=== PATIENT | male | born 1950 | race African-American/Black ===

== ENCOUNTER 2019-11-14 16:46 | Inpatient (IN) ==
--- NOTE | 2019-11-14 17:06 | DR.DIZZY ---
HPI Time seen Time Seen by Provider: 11/14/19 16:59 PCP Primary Care Physician: Apollo HPI Comment HPI Comment: Recurrent weak and dizziness over the past few days since ER visit 11/08 for the same; so bad, that family members have to hold him steady so that he does not fall; he still has intermittent episodes of brbpr and has an appt with pcp on Saturday for fup; colonoscopy last year was benign; he stopped Naprosyn last week as instructed and denies abd pain, n/v/d/f/c as well as hematemesis; he is eating and drinking appropriately. Nurses Notes Reviewed Nurses Notes Review: Yes Context Stroke Symptoms: None PMH PMH Past Medical History: Asthma Past Surgical History: No Social History Do you use any recreational Drugs:: No infectious screening Isolation: Standard ROS Review of Systems Constitutional: See HPI, Malaise, Weakness and Fatigue Eyes: No Symptoms Reported ENTM: No Symptoms Reported Respiratoy: No Symptoms Reported Cardiovascular: No Symptoms Reported Gastrointestinal/Abdominal: See HPI Genitourinary: No Symptoms Reported Neurological: See HPI and Dizziness Integumentary: No Symptoms Reported Hematologic/Lymphatic: No Symptoms Reported Psychiatric: No Symptoms Reported PE Vital Signs Vitals: Temperature 100.1 F Pulse Rate 111 Respiratory Rate 16 Blood Pressure [Left Arm] 127/83 Blood Pressure 89/61 O2 Sat by Pulse Oximetry 100 General Limitations: No Limitations General Appearance: Alert and In No Apparent Distress Head Head Exam: Normal Inspection, Atraumatic and Normocephalic Eyes Eye exam: Normal Appearance, PERRL and EOMI Sclera/Conjunctival: Normal Inspection: Bilateral Neck Neck Exam: Normal Inspection and Trachea Midline Chest Chest Inspection: Normal Inspection and Symmetric Chest Wall Rise Respiratory Respiratory Exam: Normal Lung Sounds Bilat Respiratory Exam: Bilateral: Clear to Auscultation Cardiovascular Cardiovascular Exam: Normal Rhythm and Tachycardia Abdominal Exam Abdominal Exam: Normal Inspection, Normal Bowel Sounds and Soft Extremeties Extremities Exam: Normal Inspection and Full ROM Neurologic Neurological Exam: Alert, Oriented X3 and CN II-XII Intact COURSE Consultation Call Returned: 18:09 (Dr Bustillos accepts admission, req icu) ROR Labs Reviewed Result Diagrams: 11/14/19 17:01 11/14/19 17:01 Laboratory: WBC 13.8 X10^3/uL (3.6-10.0) H 11/14/19 17:01 RBC 2.02 X10^6/uL (4.7-6.0) L 11/14/19 17:01 Hgb 5.4 g/dL (13.5-18.0) L* 11/14/19 17:01 Hct 16.6 % (42.0-54.0) L* 11/14/19 17:01 MCV 82.1 fL (80.0-100.0) 11/14/19 17:01 MCH 26.7 pg (27.0-34.0) L 11/14/19 17:01 MCHC 32.6 g/dL (33.0-35.0) L 11/14/19 17:01 RDW 14.1 % (11.6-16.5) 11/14/19 17:01 Plt Count 394 X10^3/uL (150.0-450.0) 11/14/19 17:01 MPV 7.7 fL (7.4-11.0) 11/14/19 17:01 Neut % (Auto) 67.1 % (42.0-75.0) 11/14/19 17:01 Lymph % (Auto) 24.4 % (21.0-51.0) 11/14/19 17:01 [place] % (Auto) 6.8 % (0.0-13.0) 11/14/19 17:01 Eos % (Auto) 0.3 % (0.9-2.9) L 11/14/19 17:01 Baso % (Auto) 1.4 % (0.2-1.0) H 11/14/19 17:01 Neut # (Auto) 9.3 x10^3/uL (2.2-4.8) H 11/14/19 17:01 Lymph # (Auto) 3.4 X10^3/uL (1.3-2.9) H 11/14/19 17:01 [place] # (Auto) 0.9 x10^3/uL (0.3-0.8) H 11/14/19 17:01 Eos # (Auto) 0.0 x10^3/uL (0.0-0.2) 11/14/19 17:01 Baso # (Auto) 0.2 X10^3/uL (0.0-0.1) H 11/14/19 17:01 Absolute Nucleated RBC 0.1 /100WBC 11/14/19 17:01 Sodium 141 mmol/L (136-145) 11/14/19 17:01 Corrected Sodium 141 mmol/L (136-145) 11/14/19 17:01 Potassium 4.3 mmol/L (3.5-5.1) 11/14/19 17:01 Chloride 104 mmol/L (98-107) 11/14/19 17:01 Carbon Dioxide 28.5 mmol/L (21-32) 11/14/19 17:01 BUN 25 mg/dL (7-18) H 11/14/19 17:01 Creatinine 1.79 mg/dL (0.70-1.30) H 11/14/19 17:01 Est GFR (MDRD) Af Amer 49 (>60) L 11/14/19 17:01 Est GFR (MDRD) Non-Af 40 (>60) L 11/14/19 17:01 Glucose 118 mg/dL (65-99) H 11/14/19 17:01 Calcium 8.6 mg/dL (8.5-10.1) 11/14/19 17:01 Corrected Calcium TNP 11/14/19 17:01 Total Bilirubin 0.10 mg/dL (0.2-1.0) L 11/14/19 17:01 AST 19 Units/L (15-37) 11/14/19 17:01 ALT 29 Units/L (12-78) 11/14/19 17:01 Alkaline Phosphatase 49 Units/L (46-116) 11/14/19 17:01 Total Protein 7.2 g/dL (6.4-8.2) 11/14/19 17:01 Albumin 3.4 g/dL (3.4-5.0) 11/14/19 17:01 Globulin 3.8 g/dL (2.5-4.5) 11/14/19 17:01 Albumin/Globulin Ratio 0.9 Ratio (1.1-2.1) L 11/14/19 17:01 Blood Type O POSITIVE 11/14/19 17:28 Crossmatch See Detail 11/14/19 17:28 Opioid Opioid Risk Tool Age ([place] box if 16-45): No History of Preadolescent Sexual Abuse: No Total: 0 Total Score Risk Category: Low Risk Copyright: Bharath MADRIGAL predicting aberrant behaviors Diagnosis Discharge Problem: GI bleed due to NSAIDs, Bright red rectal bleeding Anemia Qualifiers: Anemia type: unspecified type Qualified Code(s): D64.9 - Anemia, unspecified Instructions Forms: Excuse From Work
[2019-11-14] MEDS ORDERED: NS 1000 ML 1,000 ML ONE (17:11)
[2019-11-14 17:12] LABS: BASOPHILS # (AUTO) 0.2 X10^3/uL (0.0-0.1); BASOPHILS % (AUTO) 1.4 % (0.2-1.0); EOSINOPHILS % (AUTO) 0.3 % (0.9-2.9); LYMPHOCYTES # (AUTO) 3.4 X10^3/uL (1.3-2.9); LYMPHOCYTES % (AUTO) 24.4 % (21.0-51.0); MEAN CORPUSCULAR HEMOGLOBIN 26.7 pg (27.0-34.0); MEAN CORPUSCULAR HGB CONC 32.6 g/dL (33.0-35.0); MEAN CORPUSCULAR VOLUME 82.1 fL (80.0-100.0); MEAN PLATELET VOLUME 7.7 fL (7.4-11.0); MONOCYTES # (AUTO) 0.9 x10^3/uL (0.3-0.8); MONOCYTES % (AUTO) 6.8 % (0.0-13.0); NEUTROPHILS # (AUTO) 9.3 x10^3/uL (2.2-4.8); NEUTROPHILS % (AUTO) 67.1 % (42.0-75.0); PLATELET COUNT 394 X10^3/uL (150.0-450.0); RED BLOOD COUNT 2.02 X10^6/uL (4.7-6.0); RED CELL DISTRIBUTION WIDTH 14.1 % (11.6-16.5); WHITE BLOOD COUNT 13.8 X10^3/uL (3.6-10.0)
[2019-11-14] MEDS: NS 1000 ML 1,000 ML IV SCH ×2 (17:16→17:18)
[2019-11-14 17:18] LABS: HEMATOCRIT 16.6 % (42.0-54.0); HEMOGLOBIN 5.4 g/dL (13.5-18.0)
[2019-11-14 17:23] LABS: ALANINE AMINOTRANSFERASE 29 Units/L (12-78); ALBUMIN 3.4 g/dL (3.4-5.0); ALKALINE PHOSPHATASE 49 Units/L (46-116); ASPARTATE AMINO TRANSFERASE 19 Units/L (15-37); BLOOD UREA NITROGEN 25 mg/dL (7-18); CALCIUM 8.6 mg/dL (8.5-10.1); CARBON DIOXIDE 28.5 mmol/L (21-32); CHLORIDE 104 mmol/L (98-107); COR NA(FOR HYPERGLY) 141 mmol/L (136-145); CREATININE 1.79 mg/dL (0.70-1.30); SODIUM 141 mmol/L (136-145); TOTAL PROTEIN 7.2 g/dL (6.4-8.2); eGFR NON BLACK RACES 40 (>60)
[2019-11-14] MEDS ORDERED: NS 250 ML IV 250 ML IV ONE (19:39)
[2019-11-14 20:34] VITALS: BMI 27.9
[2019-11-15 01:31] LABS: BILIRUBIN,URINE NEGATIVE (NEGATIVE); BLOOD/HEMOGLOBIN,URINE NEGATIVE (NEGATIVE); GLUCOSE, URINE NEGATIVE (NEGATIVE); KETONES,URINE NEGATIVE (NEGATIVE); LEUKOCYTE ESTERASE ,URINE NEGATIVE (NEGATIVE); NITRITES,URINE NEGATIVE (NEGATIVE); PROTEIN,URINE NEGATIVE (NEGATIVE); UROBILINOGEN,URINE NORMAL (NORMAL)
[2019-11-15 01:32] LABS: HEMATOCRIT 21.4 % (42.0-54.0)
[2019-11-15 01:33] LABS: APPEARANCE,URINE CLEAR (CLEAR); COLOR,URINE YELLOW (YELLOW)
[2019-11-15] MEDS ORDERED: NS 250 ML IV 250 ML IV ONE (02:05)
[2019-11-15 05:18] LABS: BASOPHILS # (AUTO) 0.1 X10^3/uL (0.0-0.1); BASOPHILS % (AUTO) 1.1 % (0.2-1.0); EOSINOPHILS # (AUTO) 0.1 x10^3/uL (0.0-0.2); EOSINOPHILS % (AUTO) 1.2 % (0.9-2.9); HEMOGLOBIN 7.8 g/dL (13.5-18.0); LYMPHOCYTES # (AUTO) 3.5 X10^3/uL (1.3-2.9); MEAN CORPUSCULAR HEMOGLOBIN 29.1 pg (27.0-34.0); MEAN CORPUSCULAR HGB CONC 33.9 g/dL (33.0-35.0); MEAN CORPUSCULAR VOLUME 85.9 fL (80.0-100.0); MEAN PLATELET VOLUME 7.3 fL (7.4-11.0); MONOCYTES # (AUTO) 0.8 x10^3/uL (0.3-0.8); MONOCYTES % (AUTO) 6.5 % (0.0-13.0); NEUTROPHILS # (AUTO) 7.2 x10^3/uL (2.2-4.8); NEUTROPHILS % (AUTO) 61.2 % (42.0-75.0); PLATELET COUNT 284 X10^3/uL (150.0-450.0); RED BLOOD COUNT 2.68 X10^6/uL (4.7-6.0); RED CELL DISTRIBUTION WIDTH 16.2 % (11.6-16.5); WHITE BLOOD COUNT 11.8 X10^3/uL (3.6-10.0)
[2019-11-15 05:28] LABS: ALANINE AMINOTRANSFERASE 28 Units/L (12-78); ALBUMIN 2.7 g/dL (3.4-5.0); ALKALINE PHOSPHATASE 39 Units/L (46-116); ASPARTATE AMINO TRANSFERASE 20 Units/L (15-37); BLOOD UREA NITROGEN 20 mg/dL (7-18); CALCIUM 8.1 mg/dL (8.5-10.1); CARBON DIOXIDE 25.8 mmol/L (21-32); CHLORIDE 106 mmol/L (98-107); COR CA(FOR HYPOALB) 9.1 mg/dL (8.5-10.1); COR NA(FOR HYPERGLY) 142 mmol/L (136-145); CREATININE 1.27 mg/dL (0.70-1.30); SODIUM 141 mmol/L (136-145); eGFR NON BLACK RACES 60 (>60)
[2019-11-15 05:47] LABS: ANISOCYTOSIS SLIGHT; HYPOCHROMASIA SLIGHT; PLATELET MORPHOLOGY COMMENT NORMAL (NORMAL)
[2019-11-15] MEDS ORDERED: PROVENTIL NEB TX 0.083% 2.5MG/ 3ML NEB PRN (10:57)
[2019-11-15] MEDS ORDERED: LEVSIN/MAALOX/LIDOC VISC PO PRN (10:59)
[2019-11-15] MEDS: NS 1000 ML 1,000 ML IV SCH ×5 (13:45→22:35)
[2019-11-15] MEDS: PEPCID 20 MG IV PREMIX* 20 MG/50 ML BAG IV SCH ×2 (13:45→20:47)
[2019-11-15] MEDS: PROTONIX INJ 40 MG VIAL IVP SCH ×2 (13:46→20:47)
[2019-11-15] MEDS ORDERED: NS 500 ML IV 500 ML IV ONE (14:54)
[2019-11-15 20:05] LABS: HEMATOCRIT 26.7 % (42.0-54.0); HEMOGLOBIN 9.1 g/dL (13.5-18.0)
[2019-11-16 05:31] LABS: BASOPHILS # (AUTO) 0.2 X10^3/uL (0.0-0.1); BASOPHILS % (AUTO) 1.3 % (0.2-1.0); EOSINOPHILS # (AUTO) 0.2 x10^3/uL (0.0-0.2); HEMATOCRIT 28.2 % (42.0-54.0); HEMOGLOBIN 9.6 g/dL (13.5-18.0); LYMPHOCYTES # (AUTO) 3.2 X10^3/uL (1.3-2.9); LYMPHOCYTES % (AUTO) 26.1 % (21.0-51.0); MEAN CORPUSCULAR HEMOGLOBIN 29.4 pg (27.0-34.0); MEAN CORPUSCULAR HGB CONC 34.2 g/dL (33.0-35.0); MEAN CORPUSCULAR VOLUME 86.1 fL (80.0-100.0); MEAN PLATELET VOLUME 8.1 fL (7.4-11.0); MONOCYTES # (AUTO) 0.8 x10^3/uL (0.3-0.8); MONOCYTES % (AUTO) 6.3 % (0.0-13.0); NEUTROPHILS # (AUTO) 7.9 x10^3/uL (2.2-4.8); NEUTROPHILS % (AUTO) 64.3 % (42.0-75.0); PLATELET COUNT 311 X10^3/uL (150.0-450.0); RED BLOOD COUNT 3.28 X10^6/uL (4.7-6.0); RED CELL DISTRIBUTION WIDTH 16.4 % (11.6-16.5); WHITE BLOOD COUNT 12.3 X10^3/uL (3.6-10.0)
[2019-11-16 05:40] LABS: ALANINE AMINOTRANSFERASE 25 Units/L (12-78); ALBUMIN 2.9 g/dL (3.4-5.0); ALKALINE PHOSPHATASE 46 Units/L (46-116); ASPARTATE AMINO TRANSFERASE 17 Units/L (15-37); BLOOD UREA NITROGEN 14 mg/dL (7-18); CARBON DIOXIDE 27.3 mmol/L (21-32); CHLORIDE 106 mmol/L (98-107); COR CA(FOR HYPOALB) 8.9 mg/dL (8.5-10.1); CREATININE 1.18 mg/dL (0.70-1.30); SODIUM 142 mmol/L (136-145); TOTAL PROTEIN 6.5 g/dL (6.4-8.2); eGFR NON BLACK RACES > 60 (>60)
[2019-11-16] MEDS: NS 1000 ML 1,000 ML IV SCH ×3 (07:45→23:24)
--- NOTE | 2019-11-16 08:41 | DR.H&P ---
H&P - History & Physical for Day of: H&P Date: 11/14/19 - Chief Complaint Chief Complaint: WEAKNESS, BLOOD IN STOOL, DIZZINESS - History of Present Illness History of Present Illness: IS A 69 YEAR OLD PATIENT OF OURS. HE PRESENTED TO THE ER WITH COMPLAINTS OF WEAKNESS AND DIZZINESS. HE ALSO REPORTED BLOOD IN STOOL. HE REPORTS A COLONOSCOPY LAST YEAR WHICH WAS BENIGN. ON ARRIVAL, VITALS WERE 100.5-461-11-100-89/61. LABS WERE OBTAINED. ABNORMAL LAB VALUES INCLUDE THE FOLLOWING: WBC 13.8, RBC 2.02, HGB 5.4, HCT 16.6, BUN 25, CREATININE 1.79, GLUCOSE 118, TOTAL BILI 0.10, IRON 29. URINALYSIS IS UNREMARKABLE. AN EKG WAS OBYTAINED AND REVEALED: SINUS RHYTHM WITH HR 98. WE TYPED AND SCREENED AND ORDERED FOR 4 UNITS OF PRBC TO BE ADMINISTERED. WE ADMITTED PATIENT FOR FURTHER EVALUATION AND TREATMENT OF ANEMIA, GI BLEED, AND WEAKNESS. HE WAS STARTED ON NORMAL SALINE AT 80ML/HR, IV PEPCID, IV PROTONIX, RESPIRATORY TX, AND GI COCKTAIL. OTHERWISE, WE PLAN TO FOLLOW UP WITH AM LABS AND CONTINUE TO MONITOR. - Past Medical History Past Medical History: Asthma - Past Surgical History Surgical History: No History - Social History Does patient currently use any type of tobacco product: No Have you used tobacco products in the last 12 months: No Type of Tobacco Use: None Does any household member use tobacco: No Alcohol Use: None Drug Use: None Prescription drug monitoring program results: PDMP was not reviewed - Medications Home Medications: No Known Drug Allergies Allergy (Verified 11/08/19 11:53) CONTINUE taking the following medications albuterol sulfate 2 puff INHALATION Q4-6H PRN 11/14/19 [History] - Review of Systems Constitutional: Weakness Eyes: No Symptoms Reported ENT: No Symptoms Reported Respiratory: Shortness of Breath Cardiovascular: Light Headedness Gastrointestinal: Abdominal Pain, Melena Genitourinary: No Symptoms Reported Musculoskeletal: No Symptoms Reported Skin: No Symptoms Reported Neurological: Weakness - Physical Exam Vital Signs: Temperature 97.6 F Pulse Rate [Left Brachial] 93 Pulse Rate 74 Respiratory Rate 11 Blood Pressure [Left Arm] 177/89 Blood Pressure 162/87 O2 Sat by Pulse Oximetry 100 Oriented: Normal Eyes: Normal Ear: Normal Nose: Normal Throat: Normal Respiratory: Diminished Throughout Cardiovascular: Tachycardia. negative: S3, S4, Murmur : Normal Auscultation: Bowel Sounds: Normal Palpation: Normal Tenderness: Normal Skin: Normal Musculoskeletal: Normal Psychiatric: Normal Mood Description: Calm Affect: Normal Speech Pattern: Clear - Assessment/Plan (1) Anemia Qualifiers: Anemia type: unspecified type Qualified Code(s): D64.9 - Anemia, unspecified Status: Acute Plan: T&S, CROSSMATCH, TRANSFUSE 4 UNITS PRBC, PEPCID IV, PROTONIX IV, CONTINUE TO MONITOR (2) GI bleed Qualifiers: GI bleed type/associated pathology: unspecified gastrointestinal hemorrhage type Qualified Code(s): K92.2 - Gastrointestinal hemorrhage, unspecified Status: Acute (3) Generalized weakness Status: Acute - Allergies Allergies/Adverse Reactions: Allergies Allergy/AdvReac Type Severity Reaction Status Date / Time No Known Drug Allergies Allergy Verified 11/08/19 11:53
[2019-11-16] MEDS: PROTONIX INJ 40 MG VIAL IVP SCH ×2 (09:05→21:07)
[2019-11-16] MEDS: PEPCID 20 MG IV PREMIX* 20 MG/50 ML BAG IV SCH ×2 (09:05→21:07)
[2019-11-16] MEDS ORDERED: STERILE WATER IRRIGATION IR ONE (13:54)
[2019-11-16] MEDS ORDERED: DIPRIVAN VIAL 20 ML ONE (14:57)
--- NOTE | 2019-11-16 16:03 | OR.IMMED ---
Immediate Post-Op Note - Immediate Post-Op Note Pre-Op Diagnosis: GI bleeding with melanotic stool and severe anemia. Post-Op Diagnosis: non bleeding distal gastric ulcer . martin active bleeding in the upper GI tract.( stomach and DU ). mild gastritis . no neoplasm .. Procedure: EGD wit Bx Drains: NONE Complications: non Condition: Stable (on IV Protonix , PO Carafate .)
[2019-11-16] MEDS ORDERED: ULTRAM PO PRN (19:58)
[2019-11-16] MEDS ORDERED: ULTRAM ONE (20:02)
[2019-11-16] MEDS: CARAFATE PO SCH (21:07)
[2019-11-17 06:05] LABS: ALANINE AMINOTRANSFERASE 25 Units/L (12-78); ALKALINE PHOSPHATASE 50 Units/L (46-116); ASPARTATE AMINO TRANSFERASE 18 Units/L (15-37); BLOOD UREA NITROGEN 14 mg/dL (7-18); CALCIUM 8.2 mg/dL (8.5-10.1); CARBON DIOXIDE 29.1 mmol/L (21-32); CHLORIDE 103 mmol/L (98-107); SODIUM 139 mmol/L (136-145); TOTAL PROTEIN 6.7 g/dL (6.4-8.2); eGFR NON BLACK RACES > 60 (>60)
[2019-11-17 06:06] LABS: BASOPHILS # (AUTO) 0.1 X10^3/uL (0.0-0.1); BASOPHILS % (AUTO) 0.8 % (0.2-1.0); EOSINOPHILS # (AUTO) 0.3 x10^3/uL (0.0-0.2); EOSINOPHILS % (AUTO) 1.9 % (0.9-2.9); HEMATOCRIT 29.3 % (42.0-54.0); HEMOGLOBIN 9.9 g/dL (13.5-18.0); LYMPHOCYTES # (AUTO) 2.8 X10^3/uL (1.3-2.9); LYMPHOCYTES % (AUTO) 18.5 % (21.0-51.0); MEAN CORPUSCULAR HEMOGLOBIN 28.6 pg (27.0-34.0); MEAN CORPUSCULAR HGB CONC 33.6 g/dL (33.0-35.0); MEAN CORPUSCULAR VOLUME 85.1 fL (80.0-100.0); MEAN PLATELET VOLUME 7.8 fL (7.4-11.0); MONOCYTES # (AUTO) 1.1 x10^3/uL (0.3-0.8); NEUTROPHILS # (AUTO) 10.9 x10^3/uL (2.2-4.8); NEUTROPHILS % (AUTO) 71.8 % (42.0-75.0); PLATELET COUNT 388 X10^3/uL (150.0-450.0); RED BLOOD COUNT 3.44 X10^6/uL (4.7-6.0); RED CELL DISTRIBUTION WIDTH 15.7 % (11.6-16.5); WHITE BLOOD COUNT 15.2 X10^3/uL (3.6-10.0)
[2019-11-17] MEDS: CARAFATE PO SCH (06:09)
--- NOTE | 2019-11-17 09:11 | PCM.PROG ---
Progress Note - Progress Note for Day of Date of Exam: 11/16/19 - Subjective Subjective: WAS ADMITTED FOR ANEMIA, GI BLEED, AND GENERALIZED WEAKNESS. HE RECEIVIED FOUR UNITS OF PRBC YESTERDAY. TODAY, HE IS ALERT AND ORIENTED, LYING IN BED ON MORNING ROUNDS. HE CONTINUES WITH COMPLAINTS OF WEAKNESS AND BLOOD IN STOOLS. ON EXAMINATION, HEART IS REGULAR IN RATE AND RHYTHM. BILATERAL LUNGS ARE NOTED WITH DIMINISHED LUNG SOUNDS THROUGHOUT. ABDOMEN IS ROUND, SOFT, AND NOTED WITH DIFFUSE TENDERNESS. HIS VITALS THIS MORNING ARE: 98.3-73-13-100%-178/85. LABS WERE OBTAINED. ABNORMAL LAB VALUES INCLUDE THE FOLLOWING: WBC 12.3, RBC 3.28, HGB 9.6, HCT 28.2, GLUCOSE 104, CALCIUM 8.2, TOTAL BILI 0.10, ALBUMIN 3.0. HE IS CURRENTLY RECEIVING NORMAL SALINE AT 80ML/HR, IV PEPCID, IV PROTONIX, RESPIRATORY TX, AND GI COCKTAIL. WE WILL REVIEW HIS HOME MEDICATIONS. WE WILL CONSULT WITH FOR POSSIBLE SCOPE. OTHERWISE, WE WILL FOLLOW UP WITH AM LABS AND CONTINUE TO MONITOR. - Past Medical Family Social History Past Med/Fam/Surg Hx: No changes since H&P Allergies: Allergies No Known Drug Allergies Allergy (Verified 11/08/19 11:53) - Review of Systems ROS: No change since H&P - Vital Signs and I&O's Vital Signs: Temperature 98.3 F Pulse Rate [Left Brachial] 93 Pulse Rate 75 Respiratory Rate 15 Blood Pressure [Left Arm] 177/89 Blood Pressure 159/84 O2 Sat by Pulse Oximetry 100 Intake and Output: Intake & Output 11/14/19 11/15/19 11/16/19 11/17/19 11:59 11:59 11:59 11:59 Intake Total 1440 / 1440 2718 / 2718 2173 / 2173 Output Total 0 / 0 1950 / 1950 1999 Balance 1440 / 1440 768 / 768 173 / 173 - Physical Exam Oriented: Normal Eyes: Normal Ear: Normal Nose: Normal Throat: Normal Respiratory: Generalized, Diminished Cardiovascular: Normal. negative: S3, S4, Murmur : Normal Auscultation: Bowel Sounds: Normal Palpation: Normal Tenderness: Normal Skin: Normal Musculoskeletal: Normal Psychiatric: Normal Mood Description: Calm Affect: Normal Speech Pattern: Clear, Appropriate - Laboratory and Diagnostics Result Diagrams: 11/17/19 04:40 11/17/19 04:40 Labs: Laboratory WBC 15.2 X10^3/uL (3.6-10.0) H 11/17/19 04:40 RBC 3.44 X10^6/uL (4.7-6.0) L 11/17/19 04:40 Hgb 9.9 g/dL (13.5-18.0) L 11/17/19 04:40 Hct 29.3 % (42.0-54.0) L 11/17/19 04:40 MCV 85.1 fL (80.0-100.0) 11/17/19 04:40 MCH 28.6 pg (27.0-34.0) 11/17/19 04:40 MCHC 33.6 g/dL (33.0-35.0) 11/17/19 04:40 RDW 15.7 % (11.6-16.5) 11/17/19 04:40 Plt Count 388 X10^3/uL (150.0-450.0) 11/17/19 04:40 Plt Count Comment Adequate (ADEQUATE) 11/15/19 05:04 MPV 7.8 fL (7.4-11.0) 11/17/19 04:40 Neut % (Auto) 71.8 % (42.0-75.0) 11/17/19 04:40 Lymph % (Auto) 18.5 % (21.0-51.0) L 11/17/19 04:40 [place] % (Auto) 7.0 % (0.0-13.0) 11/17/19 04:40 Eos % (Auto) 1.9 % (0.9-2.9) 11/17/19 04:40 Baso % (Auto) 0.8 % (0.2-1.0) 11/17/19 04:40 Neut # (Auto) 10.9 x10^3/uL (2.2-4.8) H 11/17/19 04:40 Lymph # (Auto) 2.8 X10^3/uL (1.3-2.9) 11/17/19 04:40 [place] # (Auto) 1.1 x10^3/uL (0.3-0.8) H 11/17/19 04:40 Eos # (Auto) 0.3 x10^3/uL (0.0-0.2) H 11/17/19 04:40 Baso # (Auto) 0.1 X10^3/uL (0.0-0.1) 11/17/19 04:40 Absolute Nucleated RBC 0.0 /100WBC 11/17/19 04:40 Plt Morphology Comment Normal (NORMAL) 11/15/19 05:04 RBC Morphology Abnormal (NORMAL) 11/15/19 05:04 Hypochromasia Slight A 11/15/19 05:04 Anisocytosis Slight A 11/15/19 05:04 Sodium 139 mmol/L (136-145) 11/17/19 04:40 Corrected Sodium TNP 11/17/19 04:40 Potassium 3.8 mmol/L (3.5-5.1) 11/17/19 04:40 Chloride 103 mmol/L (98-107) 11/17/19 04:40 Carbon Dioxide 29.1 mmol/L (21-32) 11/17/19 04:40 BUN 14 mg/dL (7-18) 11/17/19 04:40 Creatinine 1.20 mg/dL (0.70-1.30) 11/17/19 04:40 Est GFR (MDRD) Af Amer > 60 (>60) 11/17/19 04:40 Est GFR (MDRD) Non-Af > 60 (>60) 11/17/19 04:40 Glucose 104 mg/dL (65-99) H 11/17/19 04:40 POC Glucose (mg/dL) 97 mg/dL (65-99) 11/17/19 05:54 Calcium 8.2 mg/dL (8.5-10.1) L 11/17/19 04:40 Corrected Calcium 9.0 mg/dL (8.5-10.1) 11/17/19 04:40 Magnesium 2.0 mg/dL (1.7-2.9) 11/17/19 04:40 Iron 29 ug/dL (50-175) L 11/14/19 17:01 Transferrin 240 mg/dL (202-364) 11/14/19 17:01 Ferritin 93 ng/mL (26-388) 11/14/19 17:01 Total Bilirubin 0.10 mg/dL (0.2-1.0) L 11/17/19 04:40 AST 18 Units/L (15-37) 11/17/19 04:40 ALT 25 Units/L (12-78) 11/17/19 04:40 Alkaline Phosphatase 50 Units/L (46-116) 11/17/19 04:40 Total Protein 6.7 g/dL (6.4-8.2) 11/17/19 04:40 Albumin 3.0 g/dL (3.4-5.0) L 11/17/19 04:40 Globulin 3.7 g/dL (2.5-4.5) 11/17/19 04:40 Albumin/Globulin Ratio 0.8 Ratio (1.1-2.1) L 11/17/19 04:40 Vitamin B12 574 pg/mL (193-986) 11/14/19 17:01 Folate 17.0 ng/mL (>8.6) 11/14/19 17:01 Specimen Type Clean catch urine 11/15/19 01:15 Urine Color Yellow (YELLOW) 11/15/19 01:15 Urine Appearance Clear (CLEAR) 11/15/19 01:15 Urine pH 5.0 (5.0 - 8.0) 11/15/19 01:15 Ur Specific [place] 1.020 (1.000-1.030) 11/15/19 01:15 Urine Protein Negative (NEGATIVE) 11/15/19 01:15 Urine Glucose (UA) Negative (NEGATIVE) 11/15/19 01:15 Urine Ketones Negative (NEGATIVE) 11/15/19 01:15 Urine Occult Blood Negative (NEGATIVE) 11/15/19 01:15 Urine Nitrite Negative (NEGATIVE) 11/15/19 01:15 Urine Bilirubin Negative (NEGATIVE) 11/15/19 01:15 Urine Urobilinogen Normal (NORMAL) 11/15/19 01:15 Ur Leukocyte Esterase Negative (NEGATIVE) 11/15/19 01:15 Blood Type O POSITIVE 11/14/19 17:28 Antibody Screen Negative 11/14/19 17:28 Crossmatch See Detail 11/14/19 17:28 - Plan (1) Anemia Status: Acute Qualifiers: Anemia type: unspecified type Qualified Code(s): D64.9 - Anemia, unspecified Plan: MONITOR H&H, PEPCID IV, PROTONIX IV, CONSULT FOR SCOPE, CONTINUE TO MONITOR (2) GI bleed Status: Acute Qualifiers: GI bleed type/associated pathology: unspecified gastrointestinal hemorrhage type Qualified Code(s): K92.2 - Gastrointestinal hemorrhage, unspecified Plan: CONSULT FOR SCOPE, MONITOR H&H (3) Generalized weakness Status: Acute
[2019-11-17] MEDS ORDERED: FLONASE NASAL SPRAY ENOSTRIL PRN (09:12)
[2019-11-17] MEDS: PEPCID 20 MG IV PREMIX* 20 MG/50 ML BAG IV SCH (09:42)
[2019-11-17] MEDS: PROTONIX INJ 40 MG VIAL IVP SCH (09:42)
[2019-11-17] MEDS ORDERED: COZAAR PO SCH (10:00)
[2019-11-17] MEDS ORDERED: ZYLOPRIM PO SCH (10:00)
[2019-11-17 12:18] VITALS: BP 150/74
[2019-11-17] MEDS ORDERED: LIPITOR TAB 20 MG PO SCH (21:00)
== END 2019-11-17 12:00 | disposition home or self-care (01) | DRG 812 ==
LOC: ER 16:49 → ICU 18:10
PROVIDERS: ADMIT Internal Medicine; ATTEND Internal Medicine
DX: R06.02 Shortness of breath; D64.89 Other specified anemias; Z79.1 Long term (current) use of non-steroidal anti-inflammatories (NSAID); R53.1 Weakness; R94.31 Abnormal electrocardiogram [ECG] [EKG]; K29.70 Gastritis, unspecified, without bleeding; K25.9 Gastric ulcer, unspecified as acute or chronic, without hemorrhage or perforation; K62.5 Hemorrhage of anus and rectum
CPT/HCPCS: 36415; 36430; 80053; 81003; 82607; 82728; 82746; 83540; 83735; 84466; 85014; 85018; 85025; 86850; 86900; 86901; 86922; 93005; 94640; 96365; 96367; 99285; A4216; A4217; A4222; C9113; P9016; S0028; J2704; J7030; J7613